=== PATIENT | female | born 1955 | race Caucasian/White ===

== ENCOUNTER 2023-10-12 00:33 | Emergency (ER) | payer MEDICARE ==
[~2023-10-12] VITALS: Ht 152.4 cm; Wt 90.7 kg
[2023-10-12 01:41] LABS: APPEARANCE,URINE CLEAR (CLEAR); BILIRUBIN,URINE NEGATIVE (NEGATIVE); BLOOD, URINE NEGATIVE Ery/uL (NEGATIVE); COLOR,URINE YELLOW (YELLOW); KETONES,URINE NEGATIVE (NEGATIVE); LEUKOCYTE ESTERASE ,URINE NEGATIVE (NEGATIVE); NITRITE, URINE NEGATIVE (NEGATIVE); PH,URINE 6.5 (5.0-8.0); PROTEIN,URINE NEGATIVE (NEGATIVE); UGLUCOSE NEGATIVE (NEGATIVE)
[2023-10-12 04:02] VITALS: BP 169/95; TEMP 98; O2SAT 98
== END 2023-10-12 04:02 | disposition home or self-care (01) ==
LOC: ER 00:34
DX: R30.0 Dysuria (principal); Z88.0 Allergy status to penicillin; Z88.2 Allergy status to sulfonamides; Z91.018 Allergy to other foods
CPT/HCPCS: 87110-TC; 87210-TC

== ENCOUNTER 2025-03-18 08:53 | Emergency (ER) | payer MEDICARE ==
[~2025-03-18] VITALS: Ht 152.4 cm; Wt 86.2 kg
[2025-03-18] MEDS ORDERED: OXYMETAZOLINE HCL NASAL SPRAY 30 ML BOTTLE NS ONE (09:22)
[2025-03-18] MEDS ORDERED: TRANEXAMIC ACID 1,000 MG/10 ML VIAL ONE (09:22)
[2025-03-18] MEDS: TRANEXAMIC ACID 1,000 MG/10 ML VIAL IR ONE (09:25)
[2025-03-18] MEDS: OXYMETAZOLINE HCL NASAL SPRAY 30 ML BOTTLE NS ONE (09:26)
[2025-03-18 10:12] VITALS: BP 146/90; TEMP 98.6; O2SAT 98
== END 2025-03-18 10:12 | disposition home or self-care (01) ==
LOC: ER 08:56
DX: R04.0 Epistaxis (principal); I48.91 Unspecified atrial fibrillation; Z79.01 Long term (current) use of anticoagulants; Z87.440 Personal history of urinary (tract) infections; Z88.0 Allergy status to penicillin; Z88.2 Allergy status to sulfonamides; Z98.890 Other specified postprocedural states